=== PATIENT | male | born 1995 | race Caucasian/White ===

== ENCOUNTER → 2023-05-26 | Outpatient (CLI) | payer BC ==
[~2023-05-26] MED LIST: IOHEXOL 350 MG/ML 150 ML (OMNIPAQUE 350) VIAL IV ONE; NS 100 ML (IVPB) BAG IV ONE
--- NOTE | 2023-05-26 09:54 | Diagnostic Imaging Report ---
EXAMINATION: CT angiography of the left lower extremity. TECHNIQUE: Contrast enhanced thin section helical images were obtained through the left lower extremity with intravenous contrast timed for the optimal opacification of the arterial structures per CTA protocol. Post-processing, reconstructions and interpretation of angiographic images of the vessels was performed. 3D MIP reconstructions were performed and reviewed. All CT scans use one or more of the following dose optimizing techniques: automated exposure control, MA and/or KvP adjustment based on a patient size and exam type, or iterative reconstruction. HISTORY: Leg injury. COMPARISON: None available. FINDINGS: The left common iliac artery is normal. The left internal iliac artery is normal. The left external iliac artery is normal. The left deep femoral artery is normal. The left superficial femoral artery is normal. The left popliteal artery is normal. The left tibioperoneal trunk is normal. The left anterior tibial, posterior tibial, and peroneal arteries are normal. There is three-vessel run off to the left ankle. There is subcutaneous stranding in the medial left thigh with a small fluid collection measuring 1.8 x 1.5 cm, possibly representing a subacute hematoma. No fracture is seen. Musculature is intact. IMPRESSION: 1. Normal vasculature in the left lower extremity. 2. Small fluid collection in the medial left thigh may represent a subacute hematoma. Dictated by: Dictated on workstation # [id number]
== END ==
LOC: RAD 09:05
DX: S80.10XA Contusion of unspecified lower leg, initial encounter (principal); S89.92XA Unspecified injury of left lower leg, initial encounter; R93.89 Abnormal findings on diagnostic imaging of other specified body structures
CPT/HCPCS: 73706